=== PATIENT | male | born 1975 ===

== ENCOUNTER 2017-06-08 18:21 | Emergency (ER) | payer MEDICAID, OTHER ==
[2017-06-08 18:27] VITALS: BP 154/91; PULSE 77; RESP 16; TEMP 98.7; O2SAT 96
--- NOTE | 2017-06-08 18:52 | ED PDOC ---
Upper Extremity Pain/Injury Time Seen by Provider: 06/08/17 18:32 Chief Complaint (Nursing): Upper Extremity Problem/Injury Chief Complaint (Provider): back pain, hand pain History Per: Patient History/Exam Limitations: no limitations Current Symptoms Are (Timing): Still Present Quality: "Pain" Severity: Moderate Additional Complaint(s): Shahid Davies is a 41 y/o male presenting to the ER on 06/08/2017 with complaints of pain and numbness to his hands bilaterally for three weeks. Patient reports symptoms started after he braced himself to prevent a fall at work three weeks ago. Patient states he was holding his own body up againt a wall to prevent falling and all of his weight was resting on his hands. In addition to hand pain, he also has pain to mid back since this injury. Patient has history of chronic low back pain and he takes motrin and gabepentin daily but he states these meds have not helped with hand and mid back pain. He notes he was unable to follow-up with employee health or his primary doctor since injury 3 weeks ago. Today, he felt his pain was emergent enough to ambulate to the ER for medical evaluation. He denies any associated headaches, dizziness, chest pain, shortness of breath, or changes in vision. No leg pain or numbness and no he denies bowel or bladder dysfunction. Past Medical History Reviewed: Historical Data, Nursing Documentation, Vital Signs Vital Signs: Last Vital Signs Temp 98.7 F 06/08/17 18:24 Pulse 77 06/08/17 18:24 Resp 16 06/08/17 18:24 BP 154/91 H 06/08/17 18:24 Pulse Ox 96 06/08/17 18:24 - Medical History PMH: Back Problems, Hypercholesterolemia, Sleep Apnea - Surgical History Surgical History: No Surg Hx - Family History Family History: States: No Known Family Hx - Living Arrangements Living Arrangements: With Family - Social History Current smoker - smoking cessation education provided: Yes Alcohol: Occasional Drugs: Denies - Home Medications Home Medications: Ambulatory Orders Medication Instructions Recorded Cyclobenzaprine [Cyclobenzaprine 10 mg PO BID PRN #12 tab 08/21/16 HCl] Gemfibrozil 08/21/16 Naproxen [Naprosyn Tab] 375 mg PO BID PRN #15 tab 08/21/16 traMADol 08/21/16 Cyclobenzaprine [Cyclobenzaprine 10 mg PO TID PRN #20 tab 06/08/17 HCl] Naproxen [Naprosyn] 500 mg PO BID #20 tab 06/08/17 - Allergies Allergies/Adverse Reactions: Allergies Allergy/AdvReac Type Severity Reaction Status Date / Time No Known Allergies Allergy Verified 08/21/16 07:06 Review of Systems ROS Statement: Except As Marked, All Systems Reviewed And Found Negative Constitutional: Negative for: Fever, Weakness Eyes: Negative for: Vision Change Cardiovascular: Negative for: Chest Pain Respiratory: Negative for: Shortness of Breath Gastrointestinal: Negative for: Nausea, Vomiting, Abdominal Pain Genitourinary Male: Negative for: Dysuria, Frequency, Incontinence, Hematuria Musculoskeletal: Positive for: Back Pain (thoracic and lumbar), Hand Pain (b/l) . Negative for: Neck Pain Neurological: Negative for: Weakness, Numbness, Headache, Dizziness Physical Exam - Reviewed Nursing Documentation Reviewed: Yes Vital Signs Reviewed: Yes - Physical Exam Appears: Positive for: Non-toxic, No Acute Distress Head Exam: Positive for: ATRAUMATIC, NORMOCEPHALIC Skin: Positive for: Normal Color. Negative for: Rash Eye Exam: Positive for: Normal appearance Neck: Positive for: Normal, Painless ROM. Negative for: Pain On Movement Of Neck Cardiovascular/Chest: Positive for: Regular Rate, Rhythm. Negative for: Murmur Respiratory: Positive for: Normal Breath Sounds. Negative for: Respiratory Distress Back: Positive for: Normal Inspection, Other ((+) TTP to thoracic and lumbar spine, negative bilateral straight leg raise) Extremity: Positive for: Normal ROM (full ROM to upper extremities bilat ), Other (strong and equal bilateral hand spare fixer). Negative for: Deformity, Swelling Neurologic/Psych: Positive for: Alert, dean for student affairs II-XII (grossly intact), Oriented, Gait (steady). Negative for: Motor/Sensory Deficits, Aphasia, Facial Droop - ECG O2 Sat by Pulse Oximetry: 96 Pulse Ox Interpretation: Normal - Other Rad Thoracic and L/S Spine x-rays X-Ray: Interpreted by Me, Viewed By Me X-Ray Interpretation: no fx, no dis Medical Decision Making Medical Decision Makin:32 Initial Impression- 41 y/o male with B/L hand pain and middle back pain. No neuro deficits noted. Initial Plan- * XR Thoracic * XR Lumbar * Toradol IM Patient is aware of x-ray results, all questions answered. He states pain is better after meds given in ED. Rx naprosyn and flexeril given along with referral to ortho application integration specialist. Documented by Jordan Glaser, acting as a scribe for Kelly Ibrahim PA-C All medical record entries made by the Scribe were at my direction and personally dictated by me. I have reviewed the chart and agree that the record accurately reflects my personal performance of the history, physical exam, medical decision making, and the department course for this patient. I have also personally directed, reviewed, and agree with the discharge instructions and disposition. Disposition - Clinical Impression Clinical Impression: Radiculopathy affecting upper extremity, Back pain - Patient ED Disposition Is Patient to be Admitted: No Counseled Patient/Family Regarding: Studies Performed, Diagnosis, Need For Followup, Rx Given - Disposition Referrals: Neel Brennan III, MD [Staff Provider] - Adry Briceño APN [Advanced Practice Nurse] - Disposition: Routine/Home Disposition Time: 19:34 Condition: STABLE Additional Instructions: Take rx meds as directed as needed for pain. Follow up in 1-2 days with orthopedist or primary care doctor. Prescriptions: Cyclobenzaprine [Cyclobenzaprine HCl] 10 mg PO TID PRN #20 tab PRN Reason: Muscle Spasm Naproxen [Naprosyn] 500 mg PO BID #20 tab Instructions: Paresthesia (ED), Back Pain (ED), Thoracic Pain (ED) Forms: [employer] ([place]ian)
--- NOTE | 2017-06-09 10:08 | RAD ---
PROCEDURE: Radiographs of the Lumbar Spine. HISTORY: trauma COMPARISON: No prior. FINDINGS: BONES: Normal alignment. No listhesis. No fracture. DISC SPACES: There is significant disc height loss identified at L5-S1 with accompanying endplate osteophytes compatible with degenerative disease. There is borderline disc height loss identified at L4-5. No suspicious lytic or blastic change. OTHER FINDINGS: None. IMPRESSION: No fracture or definitive spondylolisthesis. Inferior lumbar degenerative disease is appreciated. If further characterization is required, consider follow-up MRI or CT.
--- NOTE | 2017-06-09 10:10 | RAD ---
HISTORY: trauma COMPARISON: No prior. FINDINGS: BONES: There is borderline straightening of the thoracic curvature. No fracture or spondylolisthesis identified. Mild multilevel thoracic spondylosis appreciated without suspicious lytic or blastic change evident. DISC SPACES: Normal. SOFT TISSUES: Normal. OTHER FINDINGS: None. IMPRESSION: Mild multilevel thoracic spondylosis with borderline straightening of the thoracic curvature. No fracture or spondylolisthesis identified.
== END 2017-06-08 19:47 | disposition home or self-care (01) ==
LOC: H.ER 18:21
DX: M54.12 Radiculopathy, cervical region (principal); M54.9 Dorsalgia, unspecified; E78.00 Pure hypercholesterolemia, unspecified; M51.36 Other intervertebral disc degeneration, lumbar region